=== PATIENT | female | born 1960 | race Caucasian/White ===

== ENCOUNTER → 2017-04-10 | Outpatient (CLI) | payer OTHER ==
--- NOTE | 2017-04-12 11:45 | DI ---
AP PELVIS and LEFT HIP, 04/10/2017 11:34 AM: Clinical History: The original order indicated right hip pain but the patient indicated she has pain in the left hip. This error was corrected by the attending provider's office. Previous Exam: None at this facility. There is no soft tissue abnormality. The bony structures of the pelvis are normal. 2 views of the lef t hip are normal. The patient is status post L4 and L5 laminectomies with anterior and posterior fusi ons. Readin. Normal left hip exam. 2. The AP pelvis view is unremarkable.
== END ==
LOC: ORTHO 11:30
PROVIDERS: ATTEND Physician Assistant
DX: M25.552 Pain in left hip (principal); Z98.1 Arthrodesis status
CPT/HCPCS: 73502